=== PATIENT | female | born 1970 | race African-American/Black ===

== ENCOUNTER → 2025-03-11 | Emergency (ER) | payer MEDICAID, OTHER ==
[~2025-03-11] VITALS: Ht 149.9 cm; Wt 82.1 kg
[~2025-03-11] MED LIST: KETOROLAC TROMETHAMINE INJ 30 MG/ML VIAL ONE; ONDANSETRON HCL/PF 4 MG/2 ML VIAL ONE
[2025-03-11] MEDS: IV NS 0.9% 1,000 ML BAG IV ONE (23:08)
[2025-03-11 23:09] LABS: BASOPHILS % (AUTO) 0.6 % (0.0-2.0); EOSINOPHILS # (AUTO) 0.1 K/uL (0.0-0.7); EOSINOPHILS % (AUTO) 1.7 % (0.0-6.0); HEMATOCRIT 39 % (33-45); HEMOGLOBIN 13.3 g/dL (11.5-14.8); LYMPHOCYTES # (AUTO) 2.1 K/uL (0.8-4.8); LYMPHOCYTES % (AUTO) 38.3 % (20.0-44.0); MEAN CORPUSCULAR HEMOGLOBIN 29 PG (26.0-33.0); MEAN CORPUSCULAR HGB CONC 34 g/dl (31.0-36.0); MEAN CORPUSCULAR VOLUME 86 fL (82-100); MONOCYTES # (AUTO) 0.4 K/uL (0.1-1.30); MONOCYTES % (AUTO) 7.6 % (2.0-12.0); NEUTROPHILS # (AUTO) 2.8 K/uL (1.8-8.9); NEUTROPHILS % (AUTO) 51.8 % (43.0-81.0); PLATELET COUNT (AUTO) 166 K/uL (150-450); RED BLOOD CELL COUNT(AUTO) 4.53 MIL/uL (4.0-5.2); RED CELL DISTRIBUTION WIDTH 13.1 % (11.5-15.0); WHITE BLOOD COUNT (AUTO) 5.5 K/uL (4.3-11.0)
[2025-03-11] MEDS: ONDANSETRON HCL/PF 4 MG/2 ML VIAL IVP ONE (23:13)
[2025-03-11] MEDS: KETOROLAC TROMETHAMINE 15 MG/ML VIAL IV ONE (23:13)
[2025-03-11 23:27] LABS: ALBUMIN 3.9 g/dL (3.4-5.0); BILIRUBIN,DIRECT 0.1 mg/dL (0.0-0.2); BILIRUBIN,TOTAL 0.3 mg/dL (0.2-1.0); CALCIUM, SERUM 9.6 mg/dL (8.5-10.1); POTASSIUM 3.7 mmol/L (3.5-5.1); TOTAL PROTEIN, SERUM 7.5 g/dL (6.4-8.2)
[2025-03-12 00:11] LABS: APPEARANCE,URINE CLEAR (CLEAR); BILIRUBIN,URINE NEGATIVE (NEGATIVE); BLOOD, URINE NEGATIVE Ery/uL (NEGATIVE); COLOR,URINE YELLOW (YELLOW); KETONES,URINE NEGATIVE (NEGATIVE); LEUKOCYTE ESTERASE ,URINE NEGATIVE (NEGATIVE); NITRITE, URINE NEGATIVE (NEGATIVE); PROTEIN,URINE NEGATIVE (NEGATIVE); UGLUCOSE 3+ mg/dL (NEGATIVE); UROBILINOGEN,URINE 0.2 EU/dL (0.2)
[2025-03-12 00:13] LABS: ADD URINE CULTURE NO; BACTERIA,URINE Rare /HPF (None Seen); RBC,URINE 0-2 /HPF (0-2); SQUAMOUS EPITHELIAL CELL,UR Few /HPF (None Seen); WBC,URINE 0-2 /HPF (0-3)
[2025-03-12 00:25] LABS: ABG BASE EXCESS -1.5 mmol/L (-2.0-3.0); ABG OXYGEN SATURATION 97.1 % (94.0-98.0); ABG PCO2 34.7 mmHg (32.0-45.0); ABG PH 7.426 (7.350-7.450); ABG PO2 102.5 mmHg (83.0-108.0); ABG TOTAL HEMOGLOBIN 12.2 G/dL (12.0-16.0); COHb 0.3 % (0.5-1.5); O2Hb 96.8 % (94.0-97.0); SITE, ABG RIGHT BRACHIAL
[2025-03-12 00:45] VITALS: BP 112/61; TEMP 98.2; O2SAT 98
== END | disposition home or self-care (01) ==
LOC: ER 22:17
DX: E11.65 Type 2 diabetes mellitus with hyperglycemia (principal); R51.9 Headache, unspecified
CPT/HCPCS: 99284; 96374; 71045; 96361; 96375; 85025; 80048; 82010; 83690; 80076; 81001; 36415; 82962 ×2; J1885; J2405; J7030